=== PATIENT | female | born 1980 | race Caucasian/White ===

== ENCOUNTER 2023-03-05 18:01 | Emergency (ER) | payer BC, SELFPAY ==
[2023-03-05 18:04] VITALS: BP 161/74; PULSE 92; RESP 16; TEMP 37.1; O2SAT 98
[2023-03-05 18:22] VITALS: BP 118/63; PULSE 82; RESP 17; O2SAT 100
[2023-03-05] MEDS: ONDANSETRON HCL ODT 4 MG TABLET PO (18:41)
[2023-03-05 18:47] LABS: Basophils Percent Auto 0.3 % (0.2-1.2); Eosinophils Absolute Auto 0.2 K/mm3 (0-0.3); Eosinophils Percent Auto 1.4 % (0-4.4); Hematocrit 40.5 % (37.0-47.0); Hemoglobin 13.2 g/dL (12.0-15.0); Immature Granulocyte Absolute 0.02 K/mm3 (0.00-0.031); Immature Granulocyte Percent A 0.2 % (0-0.5); Lymphocytes Absolute Auto 1.93 K/mm3 (0.9-3.2); Lymphocytes Percent Auto 16.4 % (18.3-44.2); Mean Corpuscular HGB Conc 32.6 g/dl (32-36); Mean Corpuscular Hemoglobin 30.1 pg (26-34); Mean Corpuscular Volume 92.5 fl (80-100); Mean Platelet Volume 9.5 fl (7.4-10.4); Monocytes Absolute Auto 0.5 K/mm3 (0.1-0.6); Monocytes Percent Auto 4.3 % (2.6-8.5); Neutrophils Absolute Auto 9.1 K/mm3 (1.3-6.7); Neutrophils Percent Auto 77.4 % (45.5-73.1); Platelet Count Result 231 k/mm3 (150-375); Red Blood Count 4.38 M/mm3 (4.2-5.4); Red Cell Distribution Width 12.6 % (11.5-14.5); White Blood Count 11.8 K/mm3 (4.5-10.0)
--- NOTE | 2023-03-05 18:50 | ED.SKABFB ---
HPI - Skin/Abscess/Foreign Bdy General Chief complaint: Skin/Abscess/Foreign Body Stated complaint: R leg redness/swelling Time Seen by Provider: 03/05/23 18:12 Source: patient Mode of arrival: ambulatory Limitations: no limitations History of Present Illness HPI narrative: Patient is a 43-year-old female who presents ED with report of pain and redness to right lower extremity. Patient reports history of severe eczema and states she started Dupixent injections last week. She began noticing pain, redness, swelling to her right lower leg yesterday into today. She has noticed a small amount of drainage from one of her ezcema patches today. Concerned for infection. Denies fevers. Patient did recently fly here from out of town for [place]. No previous hx of blood clots. No CP or SOB. Related Data Allergies Allergy/AdvReac Type Severity Reaction Status Date / Time metronidazole [From Flagyl] Allergy Rash Verified 03/05/23 18:21 Review of Systems Review of Systems: CONSTITUTIONAL: Denies fever, chills, or sweats. CARDIOVASCULAR: Denies chest pain. RESPIRATORY: Denies dyspnea. SKIN: See HPI MUSCULOSKELETAL: See HPI NEUROLOGIC: Denies numbness, or weakness. All systems reviewed & are unremarkable except as noted in HPI and below Exam Narrative: GENERAL: Well appearing, well-nourished, non-toxic, in no acute distress. HEAD: Normocephalic, atraumatic. RESPIRATORY: Airway patent, respirations nonlabored. Clear to auscultation bilaterally, no rales, rhonchi, wheezing. CARDIOVASCULAR: Regular rate and rhythm without murmurs, rubs, or gallops. MUSCULOSKELETAL: Moves all extremities. No gross deformities. RLE mildly swollen compared to left lower leg. Mild TTP throughout R calf. SKIN: Warm, dry, normal color. Numerous scattered circular erythematous patches of scaling skin to trunk, extremities, bilateral lower anterior legs, consistent with nummular eczema. R lower anterior leg with oval shaped region of erythema, warmth, TTP, small pustules present, no active drainage. NEURO: A&O X3. Speech clear. Cranial nerves II-XII grossly intact. Steady gait. No ataxic movements. PSYCHIATRIC: Appropriate mood and affect. Normal interaction. Course Vital Signs Vital signs: Vital Signs Temperature 98.8 F 12/25/23 18:04 Pulse Rate 92 03/05/23 18:04 Respiratory Rate 16 03/05/23 18:04 Blood Pressure 161/74 H 03/05/23 18:04 Pulse Oximetry 98 03/05/23 18:04 Oxygen Delivery Room Air 03/05/23 18:04 Temperature 98.8 F 03/05/23 18:04 Pulse Rate 82 03/05/23 18:22 Respiratory Rate 17 03/05/23 19:40 Blood Pressure 129/73 03/05/23 19:40 Pulse Oximetry 100 03/05/23 19:40 Oxygen Delivery Room Air 03/05/23 18:04 MDM - Skin/Abscess/Foreign Bdy MDM Narrative Medical decision making narrative: Patient present ED with redness, pain, swelling noted to right lower extremity. History severe eczema, recently started on new medication injection for this. Exam seems more concerning for cellulitis with localized area of erythema, skin inflammation/warmth, pustular heads to eczema patches. Will treat as cellulitis with oral antibiotics. CBC with leukocytosis of 11.8. Patient does report her new medication is known to cause leukocytosis. Remainder of laboratory studies unremarkable. Patient did [place], differential included DVT. She does have asymmetric right lower leg swelling, tenderness to calf. D-dimer was within normal limits , but will set patient up for outpatient venous Doppler ultrasound tomorrow morning to rule out DVT. Will defer anticoagulation at this time given normal D-dimer. Patient in agreement w/ this plan. I recommended close follow-up with her primary care doctor and head of sales and marketing at home for further evaluation. Discussed strict return precautions. Patient voiced understanding. In agreement with plan. Discharged in stable condition. Medical Records
[2023-03-05 18:57] LABS: Alanine Aminotransferase 16 U/L (6-35); Albumin Level 4.2 g/dL (3.5-5.1); Alkaline Phosphatase 46 U/L (38-126); Anion Gap 8 mmol/L (8-16); Aspartate Amino Transferase 18 U/L (14-36); Bilirubin,Total 0.3 mg/dL (0.2-1.3); Blood Urea Nitrogen 11 mg/dL (7-17); Calcium 10.2 mg/dL (8.4-10.2); Carbon Dioxide 27 mmol/L (22-30); Chloride 105 mmol/L (98-107); Estimated CRCL calculation 76 ml/min; Estimated Glomerular Filt Rate > 60; Glucose 92 mg/dL (65-110); Potassium 3.8 mmol/L (3.4-5.0); Sodium 140 mmol/L (137-145)
[2023-03-05 18:58] LABS: Prothrombin Time 13.2 Seconds (11.1-14.7)
[2023-03-05 18:59] LABS: Partial Thromboplastin Time 34.6 SECONDS (22.3-36.8)
[2023-03-05 19:01] LABS: D Dimer 0.39 ug/mL (<0.48)
[2023-03-05] MEDS: DOXYCYCLINE HYCLATE 100 MG TABLET PO (19:37)
[2023-03-05 19:40] VITALS: BP 129/73; RESP 17; O2SAT 100
== END 2023-03-05 19:42 | disposition home or self-care (01) ==
PROVIDERS: Emergency Provider Physician Assistant
DX: L03.115 Cellulitis of right lower limb (principal); L30.9 Dermatitis, unspecified
CPT/HCPCS: 36415; 80053; 85025; 85380; 85610; 85730; 99283; A9270

== ENCOUNTER 2023-03-06 07:48 | Outpatient (CLI) | payer BC, SELFPAY ==
--- NOTE | ~2023-03-06 | US_ITS ---
EXAMINATION:US venous doppler LE RT INDICATION:Right lower extremity pain TECHNIQUE: Multiple grayscale, color flow and Doppler images of the right lower extremity deep venous systems were obtained and reviewed. COMPARISON:No prior studies for comparison. FINDINGS: The common femoral, superficial femoral and popliteal veins demonstrate normal respiratory variation, augmentation and compressibility. Color flow is also seen within the posterior tibial, pe roneal, greater saphenous and profunda veins. IMPRESSION: 1: No lower extremity deep venous thrombosis. Reviewed, dictated and finalized at location [facility]
== END 2023-03-06 07:49 | disposition home or self-care (01) ==
PROVIDERS: Visit Provider Physician Assistant
DX: M79.661 Pain in right lower leg (principal)
CPT/HCPCS: 93971